=== PATIENT | female | born 1965 | race Caucasian/White ===

== ENCOUNTER → 2017-04-29 | Outpatient (CLI) | payer OTHER ==
--- NOTE | 2017-04-29 15:23 | REPMRS ---
Patient History The patient states she has not had a clinical breast exam in over a year. Patient had first child at age 34. Family history of breast cancer in paternal aunt and colorectal cancer in paternal grandmother. Digital Woman Screen Mammo: April 29, 2017 - Exam #: [id number] Bilateral CC and MLO view(s) were taken. Technologist: Mago Avilez, Technologist Prior study comparison: November 19, 2009, digital bilateral screening mammo performed at [facility]. November 02, 2007, bilateral screening mammogram performed at [facility]. FINDINGS: The breast tissue is heterogeneously dense. This may lower the sensitivity of mammography. There has been no change in the appearance of the mammogram from the prior studies. There is a moderate amount of residual fibroglandular tissue which is fairly symmetric. There is no interval development of dominant mass, areas of architectural distortion, or clustered microcalcification typical of malignancy. ASSESSMENT: BI-RADS/ACR category 1 mammogram. Negative. Recommendation Routine screening mammogram in 1 year (for women over age 40). This mammogram was interpreted with the aid of an FDA-approved computer-aided dectection system. Electronically Signed By: Pino Corona MD 04/29/17 [id number]
== END ==
LOC: M WHC 14:23
PROVIDERS: ATTEND Physician Assistant Medical
DX: Z12.31 Encounter for screening mammogram for malignant neoplasm of breast (principal)

== ENCOUNTER → 2022-02-18 | Outpatient (CLI) | payer OTHER | LOC: M WHC 10:19 | PROVIDERS: ATTEND Family Medicine | DX: Z12.31 Encounter for screening mammogram for malignant neoplasm of breast (principal) ==